=== PATIENT | male | born 1970 | race Caucasian/White ===

== ENCOUNTER 2019-01-15 11:51 | Emergency (ER) | payer OTHER ==
--- NOTE | 2019-01-15 12:19 | EDPHY ---
H & P Stated Complaint: 1 month r sided pain in head to r face/numbness/drooling Time Seen by Provider: 01/15/19 12:06 HPI/ROS: HPI: This is a 48-year-old male who presents with Chief Complaint: 1 month right sided pain in head to right face/numbness/ drooling Location: Right parietal/temporal area Quality: Stabbing pressure-like Pain Duration: 1 month Signs and Symptoms: no fever, no nausea, no vomiting, no photophobia, no noise sensitivity, no neck stiffness, no ear pain, no tinnitus, no nasal congestion, no sinus pressure, no weakness, no radiation, no aura Timing: Intermittent episodes Severity: Moderate Context: Patient presents accompanied by at the urging of his primary care provider for MRI of the brain that was scheduled outpatient tomorrow but is requesting to be performed today in the emergency room. Patient complains of 1 month right-sided C-shaped headache that is on the right parietal/temporal area directly above the ear and sparing the face. He also complains of right- sided facial numbness that comes and goes accompanied by drooling out of the right side of his mouth yesterday afternoon that lasted several minutes. He also for the last several days has noted he has not been able to brush his teeth with cold water as the cold water will cause pain in his right lower molar. Last year he went to the dentist and was told that he had impacted molar that may need to be removed. The symptoms have resolved as of today. No recent upper respiratory symptoms. No fever, visual changes, rash, tinnitus, weakness, facial drooping, difficulty speaking, memory loss. Wears contact lenses for correction. No tick bites. Patient was seen by his primary care provider last week with normal neuro exam and physical exam per patient. Modifying Factors: None Comment: ROS: A comprehensive 10 system review of systems is otherwise negative aside from elements mentioned in the history of present illness. MEDICAL/SURGICAL/SOCIAL HISTORY: Medical history: Generally healthy. Does not take any regular medications. Surgical history: Denies Social history: Never smoked. . Professor at [employer] Family history noncontributory. CONSTITUTIONAL: Well-developed, well-nourished middle-aged white male, awake and alert, no obvious distress HEENT: Atraumatic and normocephalic, PERRL, EOMI. Nares patent; no rhinorrhea; no nasal mucosal edema. Tympanic membranes clear. Oropharynx clear, no exudate and moist pink mucosa. Airway patent. No lymphadenopathy. No meningismus. No temporal reproducible tenderness Cardiovascular: Normal S1/S2, regular rate, regular rhythm, without murmur rub or gallop. PULMONARY/CHEST: Symmetrical and nontender. Clear to auscultation bilaterally. Good air movement. No accessory muscle usage. ABDOMEN: Soft, nondistended, nontender, no rebound, no guarding, no peritoneal signs, no masses or organomegaly. No CVAT. EXTREMITIES: 2/2 pulses, strength 5/5, no deformities, no clubbing, no cyanosis or edema. NEUROLOGICAL: no focal neuro deficits. GCS 15. Cranial nerves 2-12 grossly intact. Normal Romberg testing. Normal [id number]. Normal [id number]. No pronator drift. Ambulatory without any deficits. Good fine and large motor coordination. SKIN: Warm and dry, no erythema. no rash. Good capillary refill. Source: Patient Exam Limitations: No limitations - Personal History Current Tetanus Diphtheria and Acellular Pertussis (TDAP): Yes - Medical/Surgical History Hx Asthma: No Hx Chronic Respiratory Disease: No Hx Diabetes: No Hx Cardiac Disease: No Hx Renal Disease: No Hx Cirrhosis: No Hx Alcoholism: No Hx HIV/AIDS: No Hx Splenectomy or Spleen Trauma: No Other PMH: denies - Social History Smoking Status: Never smoked Constitutional: Initial Vital Signs Temperature (C) 36.9 C 01/15/19 11:54 Heart Rate 90 01/15/19 11:54 Respiratory Rate 18 01/15/19 11:54 Blood Pressure 162/106 H 01/15/19 11:54 O2 Sat (%) 96 01/15/19 11:54 O2 Delivery Mode Room Air Allergies/Adverse Reactions: levofloxacin [From Levaquin] Allergy (Verified 01/15/19 11:54) Home Medications: Medication Instructions Recorded NK [No Known Home Meds] 01/15/19 Medical Decision Making - Diagnostics Imaging Results: Imaging Impressions Brain MRI 01/15/19 12:20 Impression: 1. 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 2. No sinusitis. 3. No acute infarct, acute hemorrhage, hydrocephalus, or mass effect. Findings and recommendations discussed with Emergency Department physician, Molly Mckenna PA-C at 1334 hour, 01/15/2019. Final report concurs with initial preliminary interpretation. ED Course/Re-evaluation: Vital signs reviewed and show elevated blood pressure upon arrival. No neurological deficits/LOC After discussing case with attending decision made to obtain MRI without contrast 1340: Called by radiologist that MRI brain is unremarkable. 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 I suspect that this scalp pain/jaw pain is related to impacted molar and plus or minus elevated blood pressure. Patient was counseled to follow up with his dentist as soon as possible and PCP. No signs of CVA, Krishnan's palsy, trigeminal neuralgia, tick paralysis secondary to Lyme disease, herpes zoster, [facility] tumor, cerebral aneurysms, otitis media, sinusitis. This patient was seen under the supervision of my secondary supervising physician. I evaluated and cared for this patient with attending. Differential Diagnosis: Headache including but not limited to subarachnoid hemorrhage, migraine headache , tension headache and infectious causes such as meningitis, pharyngitis and sinusitis. Departure - Departure Disposition: Home, Routine, Self-Care Clinical Impression: Impacted molar, Scalp pain, Elevated blood-pressure reading without diagnosis of hypertension Condition: Good Instructions: Migraine Headache (ED), Hypertension (ED), Toothache (ED) Additional Instructions: Follow up with a dentist in the next week. Eat a soft diet and avoid cold liquids. Take Tylenol 650 mg every 4 hr and/or ibuprofen 600 mg every 8 hr as needed for pain. Check your blood pressure daily for the next 2 weeks Follow-up with primary care provider in the next 5-7 days. If headaches continue to occur despite blood pressure control and dental visit; follow-up with Neurology. Referrals: Blanco Reyes MD [Primary Care Provider] - As per Instructions Shun Hogan MD [Medical Doctor] - As per Instructions
[2019-01-15 13:56] VITALS: BP 150/104
== END 2019-01-15 13:59 | disposition home or self-care (01) ==
DX: K01.1 Impacted teeth (principal); R51 Headache; R03.0 Elevated blood-pressure reading, without diagnosis of hypertension
CPT/HCPCS: 70551-PN